=== PATIENT | male | born 1955 | race Caucasian/White ===

== ENCOUNTER 2025-09-04 10:47 | Outpatient (AMB) | payer OTHER, SELFPAY ==
--- NOTE | 2025-09-04 10:51 | A.PHYSOV ---
Vital Signs 09/04/25 10:53 Height 5 ft 8 in Weight 143 lb BMI 21.7 Intake Visit Reasons: 3M & F/U after injection 05/31/25 Intake Note: Patient is a 70 year old male in office today for a follow up after L5-S1 Interlaminar Epidural Injection 05/31/25. Ready to schedule another injection. Bilingual Inside Sales Representative Required: No Allergies amlodipine (From [facility]) Allergy (Unknown, Verified 09/04/25 10:52) Unknown HPI Comments Details: History of Present Illness The patient is a 70 year old male presenting for a follow-up visit for chronic lower back pain and lumbar radiculitis. His lumbar sacral spine MRI from June 22, 2023, was consistent with moderate spinal canal stenosis at the L4-L5 level and bilateral L5 neural foraminal stenosis, described as moderate on the left and severe on the right. The patient is a retired post unarmed security officer who has been receiving L5-S1 epidural injections since September of 2023, to which he has responded greatly. His most recent procedure was on May 31, 2025. A week after his last injection, he went on a cruise and experienced a significant exacerbation of pain due to extensive walking, which led to an inability to sleep. He eventually utilized a wheelchair service for mobility on the ship. He has a history of claustrophobia and requires sedation for MRI procedures, stating he will never get in the torture tube again without it. He has previously undergone MRIs for his lower back and prostate. He is considering surgery at this time for his lower back. Pain Description - Location: The patient describes pain in the right L5 dermatomal distribution and rarely feels it on the left side. - Exacerbating factors: Pain is primarily exacerbated by standing and extensive walking. - Interference with function: Severe pain from walking has previously interfered with his sleep. Results - Lumbar Sacral Spine MRI (06/22/2023): Findings are consistent with moderate spinal canal stenosis at the L4-L5 level, and bilateral L5 neural foraminal stenosis, which is moderate on the left and severe on the right. [facility] Medical History (Updated 09/04/25 @ 12:29 by Satish Metzger DO) Spinal stenosis, lumbar region with neurogenic claudication Lumbar radiculitis Surgical History History of tonsillectomy History of appendectomy Social History Alcohol intake: current Alcohol intake frequency: does not drink Patient Tobacco Use Status: Former Tobacco user Substance Use Type: Marijuana Current occupational status: retired Review of Systems Narrative Review of Systems - Musculoskeletal: Reports chronic lower back pain, exacerbated by standing and walking. - Neurological: Reports pain in the right L5 dermatomal distribution. - Psychiatric: Reports claustrophobia related to MRI machines. - Constitutional: Reports disturbed sleep due to severe pain. Physical Exam Exam Exam: Physical Exam Patient appears to be in no acute distress, appropriately conversant oriented. Lumbar extension was restricted. Dural tension signs were negative. Neurological examination was nonfocal. The SI provocative maneuvers were negative. He was able to perform heel walk and toe walk with support for balance. Patient demonstrated no upper motor neuron signs. Vital Signs: BMI result Body Mass Index 21.7 Assessment & Plan Assessment & Plan (1) Lumbar radiculitis: Code(s): M54.16 - Radiculopathy, lumbar region Category: Medical (2) Spinal stenosis, lumbar region with neurogenic claudication: Code(s): M48.062 - Spinal stenosis, lumbar region with neurogenic claudication Category: Medical Plan Pain Management - Analgesia: The patient has responded greatly to L5-S1 epidural injections since September 2023 and is amenable to receiving another injection for pain relief. - Affect: The patient expressed significant frustration and distress regarding a recent pain exacerbation during a trip, describing it as a trip from [place]. - Activities of Daily Living: His pain is exacerbated by standing and walking, which significantly limited his mobility during a recent cruise until a wheelchair was used. Plan Patient was informed and verbally consented to the use of an ambient scribe for clinic note documentation during this visit. 1. Spinal Stenosis Of Lumbar Region The patient is considering surgical intervention for his chronic pain secondary to lumbar spinal stenosis. He will be asked to see his primary care physician to obtain a referral for a surgical consultation with Dr. Smith and to order a repeat lumbar MRI, as the last one was performed in 2022. In the interim, he will be scheduled for another L5-S1 epidural injection for pain management. The procedure will be scheduled for a Monday afternoon, per the patient's request. Discussion Notes I discussed the patient's ongoing chronic low back pain and right-sided lumbar radiculitis, noting the findings of lumbar stenosis on his 2022 MRI. We reviewed his recent severe pain exacerbation during a cruise, which was triggered by extensive walking. The patient expressed interest in exploring surgical options, and I advised that a new MRI would be required for a surgical consultation. I asked him to obtain the referral to his chosen surgeon, Dr. Smith, and the order for the new MRI through his primary care physician. In the meantime, we agreed to proceed with another L5-S1 epidural injection for symptomatic relief, which I will schedule for him. Risks and benefits of the procedure were discussed with the patient. Potential alternative measures were also discussed. Patient understands that the procedure is completely elective. Potential side effects associated with injectable medications were discussed. All questions were answered to the patient's satisfaction. Patient Instructions - We will schedule you for another epidural steroid injection in your lower back to help with your pain. - We will try to make this appointment on a Monday afternoon, as you requested. - Please talk to your primary care doctor about getting a referral to see the back surgeon, Dr. Smith. - You should also ask your primary care doctor to order a new MRI of your lower back. Coding Level of Care Code Est Pt Level 4 (48226) Add On Problem Visit Only Diagnoses Lumbar radiculitis M54.16 Spinal stenosis, lumbar region with neurogenic claudication M48.062
[2025-09-04 10:53] VITALS: BMI 21.7
== END 2025-09-04 11:14 | disposition home or self-care (01) ==
LOC: HO.HPHYS 10:47
PROVIDERS: Visit Provider Physical Medicine & Rehabilitation
DX: M54.16 Radiculopathy, lumbar region (principal); M48.062 Spinal stenosis, lumbar region with neurogenic claudication
CPT/HCPCS: 99214; G2211